=== PATIENT | male | born 1990 | race Two or more races ===

== ENCOUNTER 2024-07-04 20:43 | Emergency (ER) | payer OTHER ==
[~2024-07-04] VITALS: Ht 172.7 cm; Wt 98.2 kg
[2024-07-04] MEDS: ondansetron 4mg rapidly disintigrating tab PO ONE (22:15)
[2024-07-04] MEDS: morphine 4 MG/ML inj SYRINge IM ONE (22:16)
[2024-07-04] MEDS: silver sulfadiazine cream 50gm TP ONE (22:52)
[2024-07-04] MEDS: HYDROcodone/acetaminophen 10/325mg tab PO ONE (22:52)
[2024-07-04] MEDS ORDERED: HYDR-3965 PO (22:57)
[2024-07-04 23:15] VITALS: BP 124/73; PULSE 84; RESP 18; TEMP 97.6; O2SAT 99
== END 2024-07-04 23:18 | disposition home or self-care (01) ==
LOC: ER 20:44
DX: T23.102A Burn of first degree of left hand, unspecified site, initial encounter (principal)
CPT/HCPCS: 16000; 96372; 99284; J2270; A6446